=== PATIENT | male | born 1950 | race Caucasian/White ===

== ENCOUNTER 2016-07-26 08:05 | Day surgery (SDC) | payer OTHER ==
[~2016-07-26] VITALS: Ht 180.3 cm; Wt 92.5 kg
[~2016-07-26 08:05] MED LIST: ASPI-973 PO; ESOM20CA28 PO; IBUP200C11 PO; Lactated Ringer's 1,000 ML IV ONE
[2016-07-26] MEDS ORDERED: Propofol 10,000 mCg/mL 20 mL Inj ONE (08:06)
[2016-07-26] MEDS ORDERED: Lidocaine PF 1% 30 mL Inj ONE (08:06)
[2016-07-26] MEDS ORDERED: Glycopyrrolate 0.2 MG/ML 1mL Inj ONE (08:06)
[2016-07-26] MEDS ORDERED: PANT20TA2 PO (08:22)
[2016-07-26] MEDS ORDERED: MG T1TAB2 PO (08:29)
[2016-07-26 08:33] VITALS: BP 129/89; PULSE 85; RESP 16; O2SAT 96
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
[2016-07-26 10:23] VITALS: BP 96/73; PULSE 79; RESP 14; O2SAT 93
[2016-07-26 10:40] VITALS: BP 121/69; PULSE 76; RESP 14; O2SAT 96
--- NOTE | 2016-07-26 11:10 | ENDO ---
[address] [address] ENDOSCOPY PROCEDURE PATIENT: YESIKA HARRIS : 1950 MR#: [id number] ADMIT: 07/26/2016 JOB ID: [id number] DATE: 07/26/2016 PRIMARY PROVIDER: Bg Rm MD. PROCEDURE: 1. Esophagogastroduodenoscopy with biopsies. 2. Colonoscopy with biopsies. INDICATIONS: A 65-year-old male with longstanding reflux that has been poorly controlled. I had recommended he be on twice a day pantoprazole. He has had insufficient control but tells me he has only been taking the pantoprazole once per day. He has had some relief with p.r.n. Gaviscon. He has additionally had some difficulty with a tendency towards loose stools. Both EGD and colonoscopy are therefore pursued today. EQUIPMENT: GIF-H180J and a PCF-H190DL. SEDATION: Monitored anesthesia as provided by Dr. Matias Rodgers. COMPLICATIONS: None identified. BOWEL PREPARATION: Fair, adequate exam. PROCEDURE INFORMATION: After the risks and benefits were explained, written and verbal informed consent was obtained. The patient was brought into the endoscopy suite and placed into the left lateral decubitus position. Sedation was achieved using the above-stated medications with the addition of oxygen via nasal cannula. The scope was introduced into the mouth through the bite block and advanced under direct visualization to the level of the second portion of the duodenum. The scope was slowly withdrawn to carefully examine the mucosa for any defects or lesions. Retroflexed views were accomplished in the stomach. The stomach was decompressed. The scope removed from the patient who demonstrated initially suboptimal tolerance. The patient had a fairly potent gag reflex and just attempting to introduce the scope into his esophagus induced numerous sneezing fits. The patient was then turned around. A digital rectal examination accomplished. No significant pathology appreciated. Mild internal hemorrhoids. The scope was introduced into the rectum and advanced under direct visualization to the level of the cecum, as identified by the appendiceal orifice and ileocecal valve. The terminal ileum was briefly accessed, the scope then slowly withdrawn to carefully examine the mucosa for any defects or lesions. Multiple direct views were made through the dentate line for exclusion of pathology. The colon was decompressed. The scope removed from the patient who tolerated the procedure well. FINDINGS: 1. Duodenum: This appeared normal from the bulb through the second portion. Random biopsies were taken for exclusion of sprue. 2. Stomach: No outlet obstruction. No ulcers. No mass lesions. Mild gastropathy. Random biopsies were taken for exclusion of helicobacter or other pathology. Retroflexed views of the LES disclosed a small sliding hiatal hernia. 3. Esophagus: The squamocolumnar junction correlated with the top of the gastric folds for the most part. The GEJ was at about 36 cm from the incisors. The patient had numerous linear obvious erosions running up perhaps about 2 cm from the GE junction. The remainder of the esophagus was unremarkable. 4. Terminal ileum: This appeared visually unremarkable. No signs of any active inflammation. 5. Colon: No proctitis. No evidence of any colitis. Random biopsies were taken for exclusion of microscopic disease. No significant polyps, mass lesions, or inflammatory features identified throughout. ENDOSCOPIC DIAGNOSES: 1. Hiatal hernia. 2. [place] grade B erosive esophagitis. 3. Mild gastropathy. 4. Mild hemorrhoids. 5. Otherwise visually unremarkable colonoscopy. RECOMMENDATIONS: 1. Await histopathology. 2. Repeat colonoscopy in 10 years' time, sooner p.r.n. symptoms. 3. The patient is encouraged to increase his pantoprazole up to twice daily. He can then continue to use Gaviscon as needed. 4. Repeat EGD with anesthesia in about six weeks to ensure mucosal healing.
--- NOTE | 2016-07-26 16:19 | PCM.ANEP1 ---
Post Anesthesia Phase 1 PACU Phase 1 Assessment Date of Service: July 26, 2016 Vital Signs Vital Signs Date Time Temp Pulse Resp B/P Pulse Ox O2 Delivery O2 Flow Rate FiO2 07/26/16 10:40 76 14 121/69 96 Room Air 07/26/16 10:23 36.2 79 14 96/73 93 Nasal Cannula 4 07/26/16 08:33 36.8 85 16 129/89 96 Room Air Anesthetic Administered: TIVA Level of Alertness: Awake, talking UPRI's with Equal Strength: Yes Pain: No Nausea or Vomiting: No Cardiovascular Function and Hy: Yes Oxygen Delivery: Room Air Lungs: Clear to Auscultation, Normal Air Movement Dermatome Level: Full Sensation Complications: No Follow up Care: No Moses Rodgers MD July 26, 2016 16:19
--- NOTE | 2016-07-27 16:35 | PATH ---
SURGICAL PATHOLOGY Attending Physician:Aundrea Shane CASE STATUS: Signed Out PATIENT NAME: YESIKA HARRIS PID: [id number] : 1950 DATE COLLECTED:07/26/2016 17:01 SPECIMEN: 1: Duodenum, Biopsy 2: Gastric, Biopsy 3: Colon, Biopsy CLINICAL HISTORY: CHANGE IN BOWEL HABITS, GERD 1). DUODENUM BIOPSY 2). GASTRIC BIOPSY 3). RANDOM COLON BIOPSY FINAL DIAGNOSIS: 1. Duodenum, Biopsy: Duodenal mucosa with no diagnostic abnormality. Negative for active inflammation, features of sprue, dysplasia, or malignancy. 2. Gastric Biopsy: Portions of gastric body-type mucosa with no diagnostic abnormality. Negative for Helicobacter organisms by H&E stain. Negative for intestinal metaplasia, dysplasia, and malignancy. 3. Random Colon, Biopsies: Colonic mucosa with no diagnostic abnormality. Negative for active, chronic, and microscopic colitis. Negative for dysplasia and malignancy. ICD10: R19.4 GROSS DESCRIPTION: The specimen is received in three formalin filled containers labeled with the patient's name. 1). The specimen is sublabeled "duodenum" and consists of 2 portions of tissue which aggregate to 0.4 x 0.3 x 0.2 CM. The specimen is entirely submitted in cassette 1A. 2). The specimen is sublabeled "gastric" and consists of 2 portions of tissue which aggregate to 0.2 x 0.2 x 0.2 CM. The specimen is entirely submitted in cassette 2A. 3). The specimen is sublabeled "random colon" and consists of a 0.3 x 0.3 x 0.3 CM portion of tissue which is entirely submitted in cassette 3A. 07/26/2016 [facility] ICD-9 CODES: CPT CODES: 1: 14649 2: 58354 3: 71969 Electronically Signed Out Melani Byrd MD [facility] [address], [place] [address] Technical component performed at [facility], [facility] [address], [place], [address]
== END 2016-07-26 23:59 | disposition home or self-care (01) ==
LOC: END 08:05
PROVIDERS: ATTEND Internal Medicine Gastroenterology
DX: K64.8 Other hemorrhoids (principal); K44.9 Diaphragmatic hernia without obstruction or gangrene; K21.9 Gastro-esophageal reflux disease without esophagitis; K20.8 Other esophagitis; R19.4 Change in bowel habit; G47.33 Obstructive sleep apnea (adult) (pediatric); Z98.84 Bariatric surgery status; Z79.82 Long term (current) use of aspirin; Z90.01 Acquired absence of eye
CPT/HCPCS: 43239; 45380; J7120

== ENCOUNTER 2016-09-12 12:31 | Day surgery (SDC) | payer OTHER ==
[~2016-09-12] VITALS: Ht 182.9 cm; Wt 94.8 kg
[~2016-09-12 12:31] MED LIST changes: +0.9% Sodium Chloride 1,000 ML IV SCH; -ESOM20CA28 PO; -Lactated Ringer's 1,000 ML IV ONE; +MG T1TAB2 PO; +PANT20TA2 PO; +Sodium Chloride LOK Flush 10 mL Syringe IV PRN; +fentaNYL-PF 50 mCg/mL 2 mL Inj IVPUSH PRN
[2016-09-12] MEDS ORDERED: Lidocaine PF 1% 30 mL Inj ONE (12:32)
[2016-09-12] MEDS ORDERED: Propofol 10,000 mCg/mL 20 mL Inj ONE (12:32)
[2016-09-12 12:46] VITALS: BP 127/92; PULSE 72; RESP 16; O2SAT 96
[2016-09-12] MEDS ORDERED: Lactated Ringer's 1,000 ML IV SCH (13:34)
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
[2016-09-12] MEDS ORDERED: Ondansetron 2 mg/mL 2 mL Inj IVPUSH PRN (13:35)
[2016-09-12] MEDS ORDERED: MetoCLOpramide 5 mg/mL 2 mL Inj IVPUSH PRN (13:35)
[2016-09-12] MEDS ORDERED: Atropine 0.4 mg/mL Inj IVPUSH PRN (13:35)
[2016-09-12 14:04] VITALS: BP 107/73; PULSE 78; RESP 14; O2SAT 95
[2016-09-12 14:13] VITALS: BP 119/79; PULSE 70; RESP 14; O2SAT 93
[2016-09-12 14:22] VITALS: BP 140/94; PULSE 74; RESP 12; O2SAT 95
--- NOTE | 2016-09-12 14:32 | PCM.ANEP1 ---
Post Anesthesia PACU Phase 1 Assessment Date of Service: Sep 12, 2016 Vital Signs Vital Signs Date Time Temp Pulse Resp B/P Pulse Ox O2 Delivery O2 Flow Rate FiO2 09/12/16 14:22 74 12 140/94 95 Room Air 09/12/16 14:13 70 14 119/79 93 Room Air 09/12/16 14:04 78 14 107/73 95 Room Air 09/12/16 12:46 72 16 127/92 96 Room Air Anesthetic Administered: MAC Level of Alertness: Sleepy, easy to arouse PURI's with Equal Strength: Yes Pain: No Nausea or Vomiting: No CV Function & Hydration Stable: Yes Airway Device: Lungs: Normal Air Movement PACU Phase 2 Assessment Complications: No Follow up Care: N/A Patient Instructions Provided: N/A Tonny Chavarria MD Sep 12, 2016 14:32
--- NOTE | 2016-09-12 20:44 | ENDO ---
[address] [address] ENDOSCOPY PROCEDURE PATIENT: YESIKA HARRIS : 1950 MR#: [id number] ADMIT: 09/12/2016 JOB ID: [id number] CORRECTED REPORT: DATE: 09/12/2016 PRIMARY PROVIDER: Julio Cesar Orosco MD. PROCEDURE: Esophagogastroduodenoscopy. INDICATIONS: A 65-year-old male with LA grade B erosive esophagitis. He increased his proton pump inhibitor therapy and has noticed a marked improvement from a symptoms standpoint. Repeat exam is pursued to ensure appropriate mucosal healing. EQUIPMENT: GIF-H180J. SEDATION: Monitored anesthesia as provided by Dr. Tonny Chavarria. COMPLICATIONS: None identified. PROCEDURE INFORMATION: After the risks and benefits were explained, written and verbal informed consent was obtained, the patient was brought into the endoscopy suite and placed into the left lateral decubitus position. Sedation was achieved using the above-stated medications with the addition of oxygen via nasal cannula. The scope was introduced into the mouth and advanced to the second portion of the duodenum. The scope was slowly withdrawn to carefully examine the mucosa for any defects or lesions. Retroflexed views were accomplished in the stomach. The stomach was decompressed. The scope removed the patient who tolerated the procedure well. FINDINGS: 1. Duodenum. No significant pathology from the bulb through to the second portion. 2. Stomach: The patient had mild erosive features in the antrum. Prior gastric biopsies were unremarkable. I suspect this is probably from his aspirin use. Retroflexed views of the LES were unremarkable. 3. Esophagus: The squamocolumnar junction correlated with the top of the gastric folds. The GEJ was at about 36 cm from the incisors. There was probably a 4 cm hiatal hernia present. The esophagitis had improved quite considerably. At most there was evidence of LA grade A esophagitis with a couple of millimeters of linear erosion in a couple of locations. Photographs were taken. Otherwise, the esophagus appeared unremarkable. There was a benign inlet patch noted just below the UES. ENDOSCOPIC DIAGNOSES: 1. Hiatal hernia. 2. Improved esophagitis (LA grade A presently). 3. Erosive gastropathy. RECOMMENDATIONS: 1. Continue antisecretory therapy. 2. Follow up in my office on symptoms in the next 3-4 months, sooner any time as needed. CC: Julio Cesar Orosco Corrected by 09/19/2016 at 10:02am DOS.
== END 2016-09-12 23:59 | disposition home or self-care (01) ==
LOC: END 12:31
PROVIDERS: ATTEND Internal Medicine Gastroenterology
DX: K20.9 Esophagitis, unspecified (principal); K44.9 Diaphragmatic hernia without obstruction or gangrene; K31.9 Disease of stomach and duodenum, unspecified; G47.33 Obstructive sleep apnea (adult) (pediatric); K21.9 Gastro-esophageal reflux disease without esophagitis; Z79.82 Long term (current) use of aspirin; Z96.89 Presence of other specified functional implants; Z87.891 Personal history of nicotine dependence
CPT/HCPCS: 43235; J7120